=== PATIENT | female | born 1945 | race Caucasian/White ===

== ENCOUNTER 2017-09-10 15:52 | Inpatient (IN) | payer MEDICARE, OTHER ==
[~2017-09-10] VITALS: Ht 157.5 cm; Wt 69.0 kg
[2017-09-10 16:05] VITALS: BP 166/89
[2017-09-10] MEDS ORDERED: TYLENOL PO STA (16:06)
[2017-09-10] MEDS ORDERED: TORADOL IV STA (16:06)
[2017-09-10] MEDS ORDERED: NS 1000ML 1,000 ML IV STA (16:06)
[2017-09-10] MEDS ORDERED: ZOFRAN IV STA (16:06)
--- NOTE | 2017-09-10 16:06 | NUR ---
ARRIVAL PATIENT ARRIVED TO ED6 VIA W/C WITH FAMILY, C/O OF LEFT FLANK AND BACK PAIN SINCE 1500 TODAY, DID TAKE 2 ADVIL DRAWER WAXER, HERE FOR FURTHER EVAL.
--- NOTE | 2017-09-10 16:13 | ER.PDOC ---
General Chief Complaint: Abdomen Pain Stated Complaint: ABD PAIN Time seen by MD: 16:31 Source: patient Exam Limitations: no limitations History of Present Illness Initial Comments 71 yo F p/w severe L sided flank pain, onset this morning, worsened acutely at 3pm. Denies any trauma, recent travel, known exposure to bad foods or known sick contacts. + nausea with no associated vomiting. Patient denies any previous history of nephrolithiasis. Timing/Duration: 4-6 hours Severity/Quality: severe, sharpness, stabbing Radiation: LLQ, flank Associated Symptoms: nausea/vomiting Exacerbated by: nothing Relieved By: nothing Allergies: Coded Allergies: codeine (Verified Allergy, Unknown, 09/10/17) Home Meds Unable to Obtain Active Prescriptions or Reported Meds Vital Signs First Vital Signs Date Time Temp Pulse Resp B/P (MAP) Pulse Ox O2 Delivery O2 Flow Rate FiO2 09/10/17 16:02 97.9 71 18 09/10/17 16:03 92 Room Air 09/10/17 16:05 166/89 (114) Last Vital Signs Date Time Temp Pulse Resp B/P (MAP) Pulse Ox O2 Delivery O2 Flow Rate FiO2 09/10/17 16:05 97.6 71 20 166/89 (114) 92 Room Air Past Medical History Medical History: diabetes, hypertension, thyroid disease Surgical History: appendectomy, hysterectomy Social History Smoking: non-smoker Alcohol Use: none Drug Use: none Reviewed Nursing Reviewed: Vital Signs, Abn. Noted, Nursing Assessment Constitutional: no symptoms reported EENTM: no symptoms reported Respiratory: no symptoms reported Cardiovascular: no symptoms reported Gastrointestinal: see HPI Genitourinary: see HPI Musculoskeletal: no symptoms reported Skin: no symptoms reported Psychiatric/Neurological: no symptoms reported Endocrine: no symptoms reported Hematologic/Lymphatic: no symptoms reported All Other Systems: Reviewed and Negative Physical Exam General Appearance: WD/WN, Moderate Distress HEENT: PERRL/EOMI, Normal ENT Inspection Neck: Non-Tender, Full Range of Motion Respiratory: chest non-tender, lungs clear, normal breath sounds, no respiratory distress Cardiovascular: Normal Peripheral Pulses, Regular Rate, Rhythm, No Edema, No Gallop Gastrointestinal: Tenderness (L flank, L CVA, LLQ) Back: Normal Inspection, No Vertebral Tenderness, CVA Tenderness (L) Extremities: Normal Range of Motion, Non-Tender, Normal Inspection, No Pedal Edema Neurologic/Psychiatric: health therapist II-XII NML as Tested, Alert, Normal Mood/Affect, Oriented x 3 Results/Orders Results/Orders [facility] [place] [address] DIAGNOSTIC IMAGING REPORT STATUS: Signed PATIENT NAME: MCKENNA GOLDMAN MR#: [id number] : 1945 LOCATION: ER ROOM#: BED: SEX: F AGE: 71 SERVICE DATE: 09/10/17 155 ORDERING PHYSICIAN: MILTON VIDAL MD RAD#: [id number] ACCESSION NUMBER(s): [id number] PROCEDURE: CT ABD/PELVIS WO IV CONTRAST EXAM DATE: 09/10/17 1628 cc: C:\Program Files (x86)\[facility]; WINSTON FARIAS MD; MILTON VIDAL MD / CC: C:\Program Files (x86)\[facility]; WINSTON FARIAS MD; MILTON VIDAL MD PROCEDURE:CT ABDOMEN/PELVIS W/O CONTRAST COMPARISON:None. INDICATIONS:severe L sided flank pain TECHNIQUE:Axial images were created through the abdomen and pelvis without intravenous contrast material. No oral contrast was administered. Sagittal and coronal reconstructions were performed from source images. FINDINGS: LUNG BASES:Normal. No visible pulmonary or pleural disease. LIVER:Normal. No significant liver lesions are identified. BILIARY:Normal. No visible dilatation or calcification. PANCREAS:Normal. No lesion, fluid collection, ductal dilatation, or atrophy. SPLEEN:Normal. No enlargement or focal lesion. ADRENALS:Normal. No mass or enlargement. URINARY TRACT:No hydronephrosis. Multiple small left renal collecting system calculi, in the inferior calyx, largest fragment appears 4 mm in size. AORTA/VASCULAR:Normal. No aneurysm. RETROPERITONEUM:Normal. No mass or adenopathy. BOWEL/MESENTERY:There is mild colonic diverticulosis without evidence for diverticulitis. There is no intestinal obstruction, free fluid, free air or mesenteric inflammatory changes. ABDOMINAL WALL:Normal. No mass or hernia. PELVIC ORGANS:The uterus is surgically absent. No visible mass. BONES:There are degenerative changes of the spine. OTHER:Negative. CONCLUSION:Nonobstructing left renal collecting system calculi. Diverticulosis without CT evidence of acute diverticulitis Dictated by: Winston Farias MD on 09/10/2017 at 05:02 PM Laboratory Tests Test 09/10/17 00:00 09/10/17 16:12 Urine Collection Type UNKNOWN Urine Color YELLOW Urine Appearance CLOUDY Urine Bilirubin NEGATIVE MG/DL Urine Ketones NEGATIVE Urine Specific [place] 1.015 Urine pH 6 Urine Protein NEGATIVE Urine Urobilinogen NORMAL Urine Nitrate POSITIVE Urine Leukocyte Esterase 500/uL 2+ Urine Blood 50 2+ Urine RBC 2-5 RBC/HPF Urine WBC 10-25 WBC/HPF Urine Squamous Epithelial Cells FEW #/HPF Urine Bacteria MANY Urine Glucose NORMAL White Blood Count 6.7 10^3/uL Red Blood Count 4.25 10^6/uL Hemoglobin 13.3 g/dL Hematocrit 40.0 % Mean Corpuscular Volume 94.1 fL Mean Corpuscular Hemoglobin 31.3 pg Mean Corpuscular Hemoglobin Concent 33.3 g/dL Red Cell Distribution Width 13.7 % Platelet Count 260 10^3/uL Mean Platelet Volume 10.2 fL Neutrophils (%) (Auto) 61.5 % Lymphocytes (%) (Auto) 31.6 % Monocytes (%) (Auto) 5.2 % Neutrophils # (Auto) 4.1 10^3/uL Lymphocytes # (Auto) 2.1 10^3/uL Monocytes # (Auto) 0.4 10^3/uL Absolute Immature Granulocyte (auto 0.01 10^3 u/L Eosinophils % 1.2 % Basophils % 0.4 % Basophils # 0.0 10^3/uL Eosinophil Count 0.1 10^3/uL Prothrombin Time 9.8 SEC Prothrombin Time INR (Non-Therap) 1.0 Activated Partial Thromboplast Time 24.3 SEC Sodium Level 141 mmol/L Potassium Level 3.5 mmol/L Chloride Level 105.0 mmol/L Carbon Dioxide Level 23.3 mmol/L Anion Gap 16.2 Blood Urea Nitrogen 20 mg/dL Creatinine 1.04 mg/dL Estimated GFR () 63.6 BUN/Creatinine Ratio 19.0 Glucose Level 99 mg/dL Calcium Level 8.9 mg/dL Total Bilirubin 0.5 mg/dL Aspartate Amino Transf (AST/SGOT) 18 U/L Alanine Aminotransferase (ALT/SGPT) 23 U/L Alkaline Phosphatase 63 U/L Total Protein 7.4 g/dL Albumin 3.8 g/dL Globulin 3.6 Lipase 155 U/L Percent Immature Gran (Cell Imm) 0.10 % Current Medications Medications (Trade) Dose Ordered Sig/Mellissa Route PRN Reason Start Time Stop Time Status Last Admin Dose Admin Ketorolac Tromethamine (Toradol) 15 mg STAT STAT IV 09/10/17 16:06 09/10/17 16:10 DC 09/10/17 16:16 Sodium Chloride 1,000 ml @ 0 mls/hr Q0M STAT IV 09/10/17 16:06 09/10/17 16:10 DC 09/10/17 16:15 Ondansetron HCl (Zofran) 4 mg STAT STAT IV 09/10/17 16:06 09/10/17 16:10 DC 09/10/17 16:17 Acetaminophen (Tylenol) 1,000 mg STAT STAT PO 09/10/17 16:06 09/10/17 16:28 DC Sodium Chloride 1,000 ml @ ud STK-MED ONCE .ROUTE 09/10/17 16:20 09/10/17 16:22 DC Ondansetron HCl (Zofran) 4 mg STK-MED ONCE .ROUTE 09/10/17 16:20 09/10/17 16:22 DC Ketorolac Tromethamine (Toradol) 30 mg STK-MED ONCE .ROUTE 09/10/17 16:21 09/10/17 16:22 DC Meperidine HCl (Demerol) 50 mg STAT STAT IV 09/10/17 17:13 09/10/17 17:14 DC 09/10/17 17:32 Meperidine HCl (Demerol) 50 mg STK-MED ONCE .ROUTE 09/10/17 17:26 09/10/17 17:28 DC Ceftriaxone Sodium 1000 mg/ Sodium Chloride 100 ml @ 100 mls/hr STAT STAT IV 09/10/17 17:44 09/10/17 18:43 09/10/17 17:50 Sodium Chloride 100 ml @ ud STK-MED ONCE IV 09/10/17 17:48 09/10/17 17:50 DC Ceftriaxone Sodium (Rocephin) 1,000 mg STK-MED ONCE .ROUTE 09/10/17 17:48 09/10/17 17:50 DC Progress Progress Patient still with significant pain and nausea despite multiple doses of parenteral analgesia. Discussed patient with Dr. Palm for admission/ observation for pain control. Course Vitals & review Data Vital Sign - Last 24 Hours 09/10/17 09/10/17 09/10/17 16:02 16:03 16:05 Temp 97.9 97.6 97.6 Pulse 71 71 71 Resp 18 20 20 B/P (MAP) 166/89 (114) Pulse Ox 92 92 O2 Delivery Room Air Room Air Departure Time of Disposition: 18:33 Disposition: 09 ADMITTED INPATIENT Impression: Primary Impression: UTI (urinary tract infection) Additional Impressions: Left ureteral calculus Intractable abdominal pain Condition: Stable Referrals: PCP,UNKNOWN (PCP) PRIMARY CARE PROVIDER Scripts Unable to Obtain Active Prescriptions or Reported Meds Duration or Time Spent with Pa: 60 Problem Qualifiers MILTON VIDAL MD Sep 10, 2017 16:13
[2017-09-10] MEDS ORDERED: ZOFRAN ONE (16:20)
[2017-09-10] MEDS ORDERED: NS 1000ML 1,000 ML ONE (16:20)
[2017-09-10] MEDS ORDERED: TORADOL ONE (16:21)
[2017-09-10 16:23] LABS: BASOPHIL % 0.4 % (0.0-0.2); EOSINOPHIL # 0.1 10^3/uL (0.0-0.2); EOSINOPHIL % 1.2 % (0.0-5.0); HEMOGLOBIN 13.3 g/dL (12.0-15.0); LYMPHOCYTES # 2.1 10^3/uL (1.0-4.8); LYMPHOCYTES % 31.6 % (24.0-44.0); MEAN CELL HGB 31.3 pg (26-34); MEAN CELL HGB CONCENTRATION 33.3 g/dL (33-37); MEAN CORP VOLUME 94.1 fL (78-100); MEAN PLATELET VOLUME 10.2 fL (7.8-11.0); MONOCYTES # 0.4 10^3/uL (0.3-0.8); MONOCYTES % 5.2 % (5.0-12.0); NEUTROPHIL # 4.1 10^3/uL (1.8-7.7); NEUTROPHILS % 61.5 % (41.0-85.0); RED CELL DISTRIBUTION WIDTH 13.7 % (11.5-14.5); WHITE BLOOD CELL 6.7 10^3/uL (4.5-11.0)
[2017-09-10 16:39] LABS: CALCIUM 8.9 mg/dL (8.4-10.5); CARBON DIOXIDE 23.3 mmol/L (20.0-32)
--- NOTE | 2017-09-10 16:42 | NUR ---
CAT SCAN PATIENT TO CAT SCAN WITH DILCIA FROM RADIOLOGY.
--- NOTE | 2017-09-10 16:49 | NUR ---
CT: RAD RETURNED PATIENT TO EXAM TOOM #6.
--- NOTE | 2017-09-10 17:09 | DIREP ---
PROCEDURE:CT ABDOMEN/PELVIS W/O CONTRAST COMPARISON:None. INDICATIONS:severe L sided flank pain TECHNIQUE:Axial images were created through the abdomen and pelvis without intravenous contrast material. No oral contrast was administered. Sagittal and coronal reconstructions were performed from source images. FINDINGS: LUNG BASES:Normal. No visible pulmonary or pleural disease. LIVER:Normal. No significant liver lesions are identified. BILIARY:Normal. No visible dilatation or calcification. PANCREAS:Normal. No lesion, fluid collection, ductal dilatation, or atrophy. SPLEEN:Normal. No enlargement or focal lesion. ADRENALS:Normal. No mass or enlargement. URINARY TRACT:No hydronephrosis. Multiple small left renal collecting system calculi, in the inferior calyx, largest fragment appears 4 mm in size. AORTA/VASCULAR:Normal. No aneurysm. RETROPERITONEUM:Normal. No mass or adenopathy. BOWEL/MESENTERY:There is mild colonic diverticulosis without evidence for diverticulitis. There is no intestinal obstruction, free fluid, free air or mesenteric inflammatory changes. ABDOMINAL WALL:Normal. No mass or hernia. PELVIC ORGANS:The uterus is surgically absent. No visible mass. BONES:There are degenerative changes of the spine. OTHER:Negative. CONCLUSION:Nonobstructing left renal collecting system calculi. Diverticulosis without CT evidence of acute diverticulitis Dictated by: Josemanuel Farias MD on 09/10/2017 at 05:02 PM
[2017-09-10] MEDS ORDERED: DEMEROL IV STA (17:13)
[2017-09-10] MEDS ORDERED: DEMEROL ONE (17:26)
[2017-09-10 17:42] LABS: APPEARANCE,URINE CLOUDY (CLEAR); BILIRUBIN,URINE NEGATIVE (NEGATIVE); UA COLOR YELLOW (YELLOW); UROBILINOGEN,URINE NORMAL (NEGATIVE)
[2017-09-10] MEDS ORDERED: ROCEPHIN 1,000 MG in NS 100ML 100 ML IV STA (17:44)
[2017-09-10] MEDS ORDERED: ROCEPHIN ONE (17:48)
[2017-09-10] MEDS ORDERED: NS 100ML 100 ML IV ONE (17:48)
[2017-09-10 18:05] VITALS: BP 97/51
--- NOTE | 2017-09-10 18:31 | NUR ---
FERNANDEZ ROTHMAN ON PHONE
[2017-09-10] MEDS ORDERED: FLOMAX PO STA (18:35)
[2017-09-10] MEDS ORDERED: FLOMAX ONE (18:39)
--- NOTE | 2017-09-10 19:35 | NUR ---
NAUSEA PT WITH DRY HEAVES AFTER ROLLING ONTO BACK. NOTIFIED DR. ROTHMAN, ORDER RECEIVED FOR REGLAN IV.
[2017-09-10] MEDS ORDERED: REGLAN IV STA (19:38)
--- NOTE | 2017-09-10 19:48 | NUR ---
ADMIT PT TO [facility] [address] VIA ; ACCOMPANIED BY FAMILY, PERSONAL BELONGINGS, AND THIS NURSE. NONSKID SOCKS APPLIED. OXYGEN ON AT 2L/NC. HOME MEDICATIONS REVIEWED WITH PT AND SPOUSE, PT ONLY TAKES LEVOTHYROXINE 75 MCG ONCE DAILY. PT CONTINUES WITH NAUSEA, NOTED SMALL EMESIS WHILE IN ELEVATOR. UPON ARRIVAL TO ROOM, POSITIONED TO COMFORT IN BED, SIDERAILS UP, CALL LIGHT IN REACH. PT REQUESTS ADDITIONAL BLANKETS; REMAINS NAUSEATED. REPORT TO JUAN RAMON LOGAN AND SAVANNA KENT. RELINQUISH CARE.
[2017-09-10 19:50] VITALS: BP 133/73
[2017-09-10] MEDS ORDERED: LEVO75TA6 PO (20:11)
[2017-09-10] MEDS ORDERED: NS 1000ML 1,000 ML IV ONE (20:30)
[2017-09-10] MEDS ORDERED: D5W 1000ML 1,000 ML PRN (20:30)
[2017-09-10] MEDS ORDERED: PHENERGAN IV PRN (20:30)
--- NOTE | 2017-09-10 20:48 | NUR ---
PHENERGAN 6.25MG IV GIVEN IN 50ML BAG OF NS FOR NAUSEA
[2017-09-10] MEDS: NS 1000ML 1,000 ML IV SCH (21:30)
[2017-09-10] MEDS ORDERED: DURAMORPH IV PRN (21:30)
[2017-09-10] MEDS ORDERED: ZOFRAN IV PRN (21:30)
--- NOTE | 2017-09-10 22:01 | NUR ---
DURAMORPH 2MG IV GIVEN FOR PAIN
--- NOTE | 2017-09-10 22:19 | HPH ---
ADMIT DATE: 09/10/2017 CHIEF COMPLAINT: Abdominal pain. HISTORY OF PRESENT ILLNESS: The patient is a 71-year-old woman with a past medical history significant for hypothyroidism, who was in the ER with complaints of left flank pain. The pain has been present for 6 hours. It was sharp in nature, no radiation. It was associated with some nausea. There is no vomiting. No acute events. Workup in ER did show left renal calculi of approximately 4 mm with no hydronephrosis. PAST MEDICAL HISTORY: Includes hypertension, hypothyroidism, diabetes mellitus type 2. PAST SURGICAL HISTORY: She has had appendectomy, hysterectomy. ALLERGIES: ALLERGIC TO CODEINE, which causes lightheadedness and reportedly syncope. HOME MEDICATIONS: List only includes levothyroxine 50 mcg daily. SOCIAL HISTORY: She lives at home. No alcohol, tobacco or illicit drug use history. FAMILY HISTORY: Negative for early coronary artery disease or diabetes. REVIEW OF SYSTEMS: CARDIAC: Denies chest pain, shortness of breath or dyspnea on exertion. PULMONARY: No cough, sputum production or pleuritic chest pain. GASTROINTESTINAL: Positive for nausea, no vomiting, diarrhea or constipation. All else negative in 10 point review of system except as in HPI. PHYSICAL EXAMINATION: VITAL SIGNS: Upon arrival to the ER, height 157.5 cm, weight 68.5 kilograms, temperature 97.6, pulse 71, respiratory rate is 20, blood pressure 166/89, O2 saturation 92% on room air. GENERAL: She is alert, in no acute distress at the time of exam. HEENT: Pupils equal, round, reactive to light. Sclerae are anicteric. Oropharynx is clear. Mucous membranes are moist. NECK: Supple, no lymphadenopathy. CARDIOVASCULAR: At time of exam was regular rate and rhythm. LUNGS: Clear bilaterally. No wheezing. ABDOMEN: Soft. Bowel sounds are present. She is tender to palpation left flank with no rebound or guarding. EXTREMITIES: No cyanosis, clubbing or significant edema. NEUROLOGIC: Grossly nonfocal. LABORATORY DATA: CBC: White count 6.7, hemoglobin 13.3, platelets 260. Sodium was 141, potassium 3.5, chloride 105, CO2 is 23, BUN 20, creatinine 1.04, glucose is 99, calcium is 8.9, total bilirubin 0.5, AST 18, ALT is 23, alkaline phosphatase 63, total protein 7.4, albumin 3.8, lipase 155. UA, pH is 6.0, specific gravity is 1.015, positive nitrite and leukocyte esterase, 10-25 wbc's, few squamous epithelial cells, many bacteria. IMAGING STUDIES: Abdominal pelvis CT does show left renal calculi. This is nonobstructing, no other acute process. ASSESSMENT AND PLAN: The patient is a 71-year-old woman here with left nephrolithiasis with urinary tract infection, hypothyroidism, diabetes mellitus type 2 and hypertension. 1. We will continue levothyroxine, her home medication. 2. IV fluid hydration. 3. Appropriate p.r.n. pain and nausea medication. 4. IV antibiotics with IV ceftriaxone. Followup urine culture and susceptibilities. 5. Deep venous thrombosis prophylaxis with Lovenox. Time spent with the patient on 09/10/2017, is 45 minutes. This plan was discussed with the patient and her family, she is her own decision maker. She does understand and concur with plans. Michael Palm MD DR: WATSON/kristen JOB# [id number]
[2017-09-10] MEDS: TYLENOL PO PRN (22:46)
--- NOTE | 2017-09-10 22:46 | NUR ---
TYLENOL 1000MG PO GIVEN FOR TEMP 100.1
[2017-09-11] VITALS (7 sets, daily range): BP systolic 90–110; BP diastolic 51–56
[2017-09-11] MEDS: NS 1000ML 1,000 ML IV SCH ×2 (05:21→17:18)
[2017-09-11 06:14] LABS: BASOPHIL % 0.1 % (0.0-0.2); HEMOGLOBIN 11.5 g/dL (12.0-15.0); LYMPHOCYTES # 0.3 10^3/uL (1.0-4.8); LYMPHOCYTES % 1.9 % (24.0-44.0); MEAN CELL HGB 31.4 pg (26-34); MEAN CELL HGB CONCENTRATION 32.9 g/dL (33-37); MEAN CORP VOLUME 95.6 fL (78-100); MEAN PLATELET VOLUME 10.5 fL (7.8-11.0); MONOCYTES % 6.2 % (5.0-12.0); NEUTROPHIL # 14.8 10^3/uL (1.8-7.7); NEUTROPHILS % 91.1 % (41.0-85.0); WHITE BLOOD CELL 16.2 10^3/uL (4.5-11.0)
[2017-09-11 06:35] LABS: CALCIUM 7.7 mg/dL (8.4-10.5); CARBON DIOXIDE 22.7 mmol/L (20.0-32)
--- NOTE | 2017-09-11 06:42 | NUR ---
report to Efren CORRALES
--- NOTE | 2017-09-11 07:18 | NUR ---
REPORT REPORT RECEIVED FROM COMPLIANCE OFFICER
[2017-09-11] MEDS ORDERED: NS 100ML 100 ML IV ONE (07:48)
[2017-09-11] MEDS ORDERED: ROCEPHIN ONE (07:48)
[2017-09-11] MEDS ORDERED: PROTONIX PO ONE (07:48)
[2017-09-11] MEDS: SYNTHROID PO SCH (07:59)
[2017-09-11] MEDS: PROTONIX PO SCH (08:00)
[2017-09-11] MEDS: ROCEPHIN 1,000 MG in NS 100ML 100 ML IV SCH (08:00)
[2017-09-11] MEDS: LOVENOX SQ SCH (10:15)
[2017-09-11 11:21] LABS: BAND NEUTROPHILS 2 % (2-6); MYELOCYTES 1 %; SEGMENTED NEUTROPHILS 22 % (31-76)
[2017-09-11 11:22] LABS: TOXIC GRANULATION 1+ (NEGATIVE)
--- NOTE | 2017-09-11 13:00 | NUR ---
REPORT REPORT RECEIVED FROM Sandra GARDINER RN. PATIENT CARE ASSUMED.
--- NOTE | 2017-09-11 13:43 | PRM.PN ---
Subjective Subjective Date: Sep 11, 2017 Time: 13:30 Subjective Pt reports pain is better; slight discomfort only; no N/V Patient History: Patient reports no known family medical history. VTE VTE Risk Total Score: 2 VTE Risk Score VTE Risk: Score 0-1 = Low Risk (Aggressive mobilization; early ambulation; no VTE prophylaxis required) Score 2: Moderate Risk (Intermittent/Pneumatic Compression Device OR Lovenox/Heparin/Coumadin) Score 3-4: High Risk (Intermittent/Pneumatic Compression Device AND Lovenox/Heparin/Coumadin) Score > or =5: Highest Risk (Intermittent/Pneumatic Compression Device AND Lovenox/Heparin/Coumadin) Antico:Hep/LMWH/Coum/Xarelto: Yes Mechanical device ordered: No Review of Systems Constitutional: No: Fever, Malaise Eyes: No: Pain, Vision change, Conjunctivae inflammation ENT: No: Ear pain, Ear discharge, Nose pain Respiratory: No: Cough, Dry, Shortness of breath, SOB with excertion Cardiovascular: No: Chest Pain, Palpitations, Orthopnea Gastrointestinal: No: Nausea, Vomiting, Abdominal Pain Genitourinary: No Incontinence, No Hematuria, No Retention Musculoskeletal: No: neck pain, shoulder pain, arm pain, back pain Skin: No: Lesions, Jaundice, Bruising Neurological: No: Numbness, Incoordination, Confusion, Seizures Allergies: Coded Allergies: codeine (Verified Allergy, Unknown, 09/10/17) Scheduled Levothyroxine Sodium (Levothyroxine Sodium), 1 TAB PO DAILY, (Reported) Objective Vitals and I/O Vital Sign - Last 24 Hours 09/10/17 09/10/17 09/10/17 09/10/17 16:02 16:03 16:05 18:05 Temp 97.9 97.6 97.6 97.6 Pulse 71 71 71 75 Resp 18 20 20 20 B/P (MAP) 166/89 (114) 97/51 (66) Pulse Ox 92 92 98 O2 Delivery Room Air Room Air Nasal [place] O2 Flow Rate 2.00 09/10/17 09/10/17 09/10/17 09/10/17 19:50 20:05 21:53 22:45 Temp 98.2 100.1 Pulse 89 Resp 18 B/P (MAP) 133/73 (93) Pulse Ox 96 O2 Delivery Nasal Canula Nasal Cannula Nasal Cannula O2 Flow Rate 2.00 2.00 2.00 09/11/17 09/11/17 09/11/17 09/11/17 00:05 04:37 07:43 09:52 Temp 98.1 98.3 97.5 Pulse 91 87 81 Resp 18 18 20 B/P (MAP) 98/55 (69) 92/54 (67) 90/53 (65) Pulse Ox 95 96 90 O2 Delivery Room Air Room Air Room Air Room Air 09/11/17 12:10 Temp 98.9 Pulse 83 Resp 20 B/P (MAP) 90/54 (66) Pulse Ox 93 O2 Delivery Room Air Intake and Output 09/10/17 09/10/17 09/11/17 15:00 23:00 07:00 Intake Total 1108.25 ml 1218 ml Output Total 750 ml Balance 1108.25 ml 468 ml General: Alert, Oriented X3, Cooperative, No acute distress HEENT: Atraumatic, PERRLA, EOMI, Mucous membr. moist/pink Neck: Supple, No JVD, No thyromegaly Lungs: Clear to auscultation, Normal air movement Heart: Regular rate, Normal S1, Normal S2 Abdomen: Normal bowel sounds, Soft Extremities: No clubbing, No cyanosis Skin: No rashes, No breakdown Neuro: Normal speech Psych/Mental Status: Mental status NL, Mood NL Course Sepsis Screening Results: Posi: NEGATIVE Sepsis Qualifier/Stage: NO DEFINITE RISK Vitals & review Data Vital Sign - Last 24 Hours 09/10/17 09/10/17 09/10/17 16:02 16:03 16:05 Temp 97.9 97.6 97.6 Pulse 71 71 71 Resp 18 20 20 B/P (MAP) 166/89 (114) Pulse Ox 92 92 O2 Delivery Room Air Room Air Assessment/Plan Assessment/Plan Assessment/Plan 71 yo female with UTI, L renal stones, DM, HTN - cont IV abx and IVF - await urine cx - increase activity LAURA CHERRY MD Sep 11, 2017 13:43
--- NOTE | 2017-09-11 13:53 | NUR ---
STATUS PATIENT RESTING IN BED WITH SPOUSE AT BEDSIDE. PATIENT DENIES PAIN OR DISCOMFORT AT THIS TIME. BED IN LOW LOCKED POSITION WITH SIDE RAILS UP X 2. CALL LIGHT AND BED SIDE TABLE WITHIN REACH.
[2017-09-11] MEDS: TYLENOL PO PRN (17:20)
--- NOTE | 2017-09-11 19:22 | NUR ---
REPORT REPORT GIVEN TO MASON HELPER.
[2017-09-12 04:15] VITALS: BP 123/69
[2017-09-12] MEDS: TYLENOL PO PRN ×2 (04:32→13:07)
[2017-09-12 06:34] LABS: BASOPHIL % 0.1 % (0.0-0.2); EOSINOPHIL # 0.1 10^3/uL (0.0-0.2); EOSINOPHIL % 0.5 % (0.0-5.0); HEMOGLOBIN 10.9 g/dL (12.0-15.0); LYMPHOCYTES # 0.9 10^3/uL (1.0-4.8); LYMPHOCYTES % 5.5 % (24.0-44.0); MEAN CELL HGB 31.6 pg (26-34); MEAN CELL HGB CONCENTRATION 32.8 g/dL (33-37); MEAN CORP VOLUME 96.2 fL (78-100); MEAN PLATELET VOLUME 10.7 fL (7.8-11.0); MONOCYTES # 0.9 10^3/uL (0.3-0.8); MONOCYTES % 5.5 % (5.0-12.0); NEUTROPHIL # 14.3 10^3/uL (1.8-7.7); NEUTROPHILS % 87.8 % (41.0-85.0); RED CELL DISTRIBUTION WIDTH 14.4 % (11.5-14.5); WHITE BLOOD CELL 16.3 10^3/uL (4.5-11.0)
--- NOTE | 2017-09-12 06:40 | NUR ---
REPORT REPORT RECEIVED FROM MICHAEL CORRALES ASSUMED CARE OF PT
[2017-09-12 06:43] LABS: CALCIUM 7.9 mg/dL (8.4-10.5); CARBON DIOXIDE 24.5 mmol/L (20.0-32)
[2017-09-12 07:35] VITALS: BP 106/63
[2017-09-12 08:38] LABS: BILIRUBIN,URINE NEGATIVE (NEGATIVE); UROBILINOGEN,URINE NORMAL (NEGATIVE)
[2017-09-12] MEDS: PROTONIX PO SCH (08:43)
[2017-09-12] MEDS: SYNTHROID PO SCH (08:43)
[2017-09-12] MEDS: LOVENOX SQ SCH (08:44)
[2017-09-12] MEDS: NS 1000ML 1,000 ML IV SCH ×3 (08:44→23:30)
[2017-09-12] MEDS: ROCEPHIN 1,000 MG in NS 100ML 100 ML IV SCH (08:44)
[2017-09-12] MEDS: ULTRAM PO PRN (08:52)
[2017-09-12 09:38] LABS: APPEARANCE,URINE SLIGHTLY CLOUDY (CLEAR); UA COLOR DARK YELLOW (YELLOW)
[2017-09-12 11:45] VITALS: BP 125/72
[2017-09-12] MEDS: ZOFRAN IV PRN ×2 (13:07→19:09)
[2017-09-12 16:30] VITALS: BP 126/75
--- NOTE | 2017-09-12 18:31 | NUR ---
report received report from offgoing shift
[2017-09-12 19:23] VITALS: BP 155/79
[2017-09-12] MEDS ORDERED: GENTAMICIN SULFATE IV ONE (20:30)
[2017-09-12] MEDS ORDERED: PHENERGAN IV PRN (20:30)
[2017-09-12] MEDS ORDERED: NS 100ML 100 ML IV ONE (21:35)
[2017-09-13 00:02] VITALS: BP 166/84
[2017-09-13] MEDS ORDERED: NS 100ML 100 ML IV ONE (04:11)
[2017-09-13] MEDS: GENTAMICIN SULFATE IV SCH ×4 (04:15→21:21)
[2017-09-13 04:28] VITALS: BP 170/82
--- NOTE | 2017-09-13 06:54 | NUR ---
report report given to o/c shift
[2017-09-13 09:00] VITALS: BP 192/74
[2017-09-13] MEDS ORDERED: PHENERGAN 12.5 MG in HNS 50ML 50 ML IV PRN (09:00)
[2017-09-13] MEDS: ROCEPHIN 1,000 MG in NS 100ML 100 ML IV SCH (09:12)
[2017-09-13] MEDS: NS 1000ML 1,000 ML IV SCH (09:12)
[2017-09-13] MEDS: PROTONIX PO SCH (09:13)
[2017-09-13] MEDS: SYNTHROID PO SCH (09:13)
[2017-09-13] MEDS: LOVENOX SQ SCH (09:13)
--- NOTE | 2017-09-13 10:20 | NUR ---
DISCHARGE PLAN CM VISITED WITH PATIENT CONCERNING HER DISCHARGE PLAN AND NEED. PATIENT LIVES @ HOME WITH HER AND SHE IS VERY INDEPENDENT ON ADLS. 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 PATIENT DENIES NEEDING ADDITIONAL RESOURCES @ THIS TIME. CURRENT GOAL FOR PATIENT IS TO DISCHARGE BACK HOME WITH TO ROUTINE SELF CARE UPON DISCHARGE. NO FURTHER CM OR DISCHARGE NEEDS KNOWN @ THIS TIME.
[2017-09-13] MEDS: ULTRAM PO PRN (12:49)
[2017-09-13] MEDS: TYLENOL PO PRN ×2 (12:52→23:05)
--- NOTE | 2017-09-13 14:00 | NUR ---
REPORT RECEIVED RECEIVED REPORT FROM NURSE SHIRA DELATORRE ON Pt.
[2017-09-13] MEDS: NS IV SCH ×2 (14:16→21:21)
[2017-09-13] MEDS ORDERED: LOSA25TA5 PO (14:54)
[2017-09-13 15:59] VITALS: BP 125/83
[2017-09-13] MEDS: COZAAR PO SCH (15:59)
--- NOTE | 2017-09-13 15:59 | NUR ---
BP 183/77, CHARGE NURSE ELVIN AWARE, PER ORDER OF CHARGE NURSE ELVIN RN ADMINISTERED 25 LOSARTAN TAB TO Pt, Pt ASYMPTOMATIC DENIES ANY PAIN AND DISCOMFORT AT THIS TIME.
[2017-09-13 20:27] VITALS: BP 158/79
[2017-09-14] MEDS: NS 1000ML 1,000 ML IV SCH ×2 (00:27→05:30)
[2017-09-14 00:29] VITALS: BP 147/69
--- NOTE | 2017-09-14 02:49 | PNH ---
DATE: 09/13/2017 SUBJECTIVE: She states she feels better. She denies any nausea or vomiting. Couple of days ago, she was having some numbness, tingling of her hands and significant nausea. She thinks it is reaction to some medications, she is not sure which one. She is tolerating diet well. OBJECTIVE: VITAL SIGNS: T-max in last 24 hours is 98.3, pulse 54, respiratory rate 18, blood pressure is 170/82, O2 saturation 98% on room air. GENERAL: She is alert, in no acute distress at time of exam. HEENT: Pupils equal, round and reactive to light. Sclerae are anicteric. Oropharynx is clear. Mucous membranes are moist. NECK: Supple, no lymphadenopathy. CARDIOVASCULAR: At time of exam is regular rate and rhythm. LUNGS: Clear bilaterally. No wheezing. ABDOMEN: Soft. Bowel sounds are present, nontender to palpation. EXTREMITIES: No cyanosis, clubbing or significant edema. NEUROLOGIC: Grossly nonfocal. ASSESSMENT AND PLAN: The patient is a 71-year-old woman here with slowly improving pyelonephritis with anemia due to chronic disease. 1. Continue intravenous fluids. 2. Continue intravenous antibiotics. Gentamicin has been added. Followup urine culture and susceptibilities. There is indication this may be a resistant bacteria. 3. Deep venous thrombosis prophylaxis with Lovenox. 4. Appropriate p.r.n. pain and nausea medication. Time spent on 09/13/2017 is 25 minutes. Michael Palm MD DR: WATSON/kristen JOB# [id number]
[2017-09-14 04:47] LABS: BASOPHIL % 0.3 % (0.0-0.2); EOSINOPHIL # 0.1 10^3/uL (0.0-0.2); HEMOGLOBIN 11.2 g/dL (12.0-15.0); LYMPHOCYTES # 1.8 10^3/uL (1.0-4.8); LYMPHOCYTES % 14.7 % (24.0-44.0); MEAN CELL HGB 31.2 pg (26-34); MEAN CELL HGB CONCENTRATION 33.1 g/dL (33-37); MEAN CORP VOLUME 94.2 fL (78-100); MEAN PLATELET VOLUME 11.7 fL (7.8-11.0); MONOCYTES # 0.8 10^3/uL (0.3-0.8); MONOCYTES % 6.7 % (5.0-12.0); NEUTROPHIL # 9.4 10^3/uL (1.8-7.7); NEUTROPHILS % 76.3 % (41.0-85.0); RED CELL DISTRIBUTION WIDTH 13.7 % (11.5-14.5); WHITE BLOOD CELL 12.3 10^3/uL (4.5-11.0)
[2017-09-14 04:52] VITALS: BP 159/65
[2017-09-14 04:57] LABS: CALCIUM 7.9 mg/dL (8.4-10.5); CARBON DIOXIDE 22.1 mmol/L (20.0-32)
[2017-09-14] MEDS: GENTAMICIN SULFATE IV SCH (05:47)
[2017-09-14] MEDS: NS IV SCH (05:47)
--- NOTE | 2017-09-14 06:45 | NUR ---
REPORT RECEIVED FROM JUAN RAMON TURCIOS.
--- NOTE | 2017-09-14 07:37 | NUR ---
ASSESSMENT COMPLETED. PATIENT SITTING UP ON SIDE OF BED. DENIES PAIN OR DISCOMFORT. AT BEDSIDE. PATIENT STATES "I AM HOPING I GET TO GO HOME TODAY. I HAVE THINGS I NEED TO DO." NO DISTRESS NOTED. IV PATENT WITHOUT S/S INFILTRATION. DENIES CHILLS, FEVER OR PAIN. PATIENT AMBULATORY IN ROOM WITHOUT PROBLEMS. CALL LIGHT WITHIN REACH.
[2017-09-14] MEDS: ROCEPHIN 1,000 MG in NS 100ML 100 ML IV SCH (08:18)
[2017-09-14] MEDS ORDERED: AMOX1TAB63 PO (08:42)
--- NOTE | 2017-09-14 08:47 | PRM.DC ---
Discharge Summary Date of Discharge: Sep 14, 2017 Reason for Visit: Abdominal pain Patient History: Patient reports no known family medical history. History Present Illness: (1) Left ureteral calculus Status: Resolved ICD Code: N20.1 - Calculus of ureter SNOMED: 98663033 (2) UTI (urinary tract infection) Status: Acute ICD Code: N39.0 - Urinary tract infection, site not specified SNOMED: 17196362 Assessment & Plan: Five more days of oral antibiotics Multi-drug resistant UTI General: Alert, Oriented X3, Cooperative, No acute distress HEENT: PERRLA, EOMI Neck: Supple, No JVD Lungs: Clear to auscultation, Normal air movement Heart: Regular rate, Normal S1, Normal S2 Abdomen: Normal bowel sounds, Soft, No tenderness Extremities: No clubbing, No cyanosis, No edema Skin: No breakdown Neuro: Normal speech, Strength at 5/5 X4 ext, Cranial nerves 3-12 NL Psych/Mental Status: Mood NL Results(Labs/Rad) Laboratory Tests Test 09/14/17 04:23 White Blood Count 12.3 10^3/uL Red Blood Count 3.59 10^6/uL Hemoglobin 11.2 g/dL Hematocrit 33.8 % Mean Corpuscular Volume 94.2 fL Mean Corpuscular Hemoglobin 31.2 pg Mean Corpuscular Hemoglobin Concent 33.1 g/dL Red Cell Distribution Width 13.7 % Platelet Count 184 10^3/uL Mean Platelet Volume 11.7 fL Neutrophils (%) (Auto) 76.3 % Lymphocytes (%) (Auto) 14.7 % Monocytes (%) (Auto) 6.7 % Neutrophils # (Auto) 9.4 10^3/uL Lymphocytes # (Auto) 1.8 10^3/uL Monocytes # (Auto) 0.8 10^3/uL Absolute Immature Granulocyte (auto 0.12 10^3 u/L Eosinophils % 1.0 % Basophils % 0.3 % Basophils # 0.0 10^3/uL Eosinophil Count 0.1 10^3/uL Sodium Level 143 mmol/L Potassium Level 3.7 mmol/L Chloride Level 109.0 mmol/L Carbon Dioxide Level 22.1 mmol/L Glucose Level 113 mg/dL Blood Urea Nitrogen 15 mg/dL Creatinine 1.03 mg/dL Calcium Level 7.9 mg/dL Anion Gap 15.6 Estimated GFR () 64.3 BUN/Creatinine Ratio 14.0 Magnesium Level 1.7 mg/dL Percent Immature Gran (Cell Imm) 1.00 % Scheduled Amoxicillin/Potassium Clav (Augmentin 875-125 Tablet), 1 EACH PO BID Levothyroxine Sodium (Levothyroxine Sodium), 1 TAB PO DAILY, (Reported) Losartan Potassium (Losartan Potassium), 1 TAB PO DAILY, (Reported) Sepsis Evaluation @ Discharge Vital Sign - Last 24 Hours 09/10/17 09/10/17 09/10/17 16:02 16:03 16:05 Temp 97.9 97.6 97.6 Pulse 71 71 71 Resp 18 20 20 B/P (MAP) 166/89 (114) Pulse Ox 92 92 O2 Delivery Room Air Room Air Course Sepsis Screening Results: Posi: NEGATIVE Sepsis Qualifier/Stage: NO DEFINITE RISK Vitals & review Data Vital Sign - Last 24 Hours 09/10/17 09/10/17 09/10/17 16:02 16:03 16:05 Temp 97.9 97.6 97.6 Pulse 71 71 71 Resp 18 20 20 B/P (MAP) 166/89 (114) Pulse Ox 92 92 O2 Delivery Room Air Room Air Plan Discharge Date: Sep 14, 2017 Dicharge DX: 1. Ureterolithiasis, 2. Multi-drug resistant UTI Discharge Disposition: Stable Plan Resume home medications plus Augmentin twice daily for five days Diet and activity as tolerated Follow up with PCP 1-2 weeks Drink plenty of water Discharge plans discussed with patient, she is her own decision maker and does understand and concur with plans Time spent 25 minutes Problem Qualifiers (1) UTI (urinary tract infection): Urinary tract infection type: acute cystitis Hematuria presence: without hematuria Qualified Codes: N30.00 - Acute cystitis without hematuria JOSE ROBERTO PRESLEY MD Sep 14, 2017 08:47
[2017-09-14] MEDS: LOVENOX SQ SCH (09:00)
[2017-09-14 09:18] VITALS: BP 203/84
[2017-09-14] MEDS: PROTONIX PO SCH (09:20)
[2017-09-14] MEDS: SYNTHROID PO SCH (09:21)
[2017-09-14] MEDS: COZAAR PO SCH (09:21)
== END 2017-09-14 10:25 | disposition home or self-care (01) | DRG 694 ==
LOC: ER 15:52 → MS 18:34 → OBSVTOIN 21:17
PROVIDERS: ADMIT Internal Medicine; ATTEND Internal Medicine
DX: N20.2 Calculus of kidney with calculus of ureter (principal); N12 Tubulo-interstitial nephritis, not specified as acute or chronic; I10 Essential (primary) hypertension; E03.9 Hypothyroidism, unspecified; E11.9 Type 2 diabetes mellitus without complications; D63.8 Anemia in other chronic diseases classified elsewhere; Z16.24 Resistance to multiple antibiotics; Z90.49 Acquired absence of other specified parts of digestive tract; Z90.710 Acquired absence of both cervix and uterus; Z79.899 Other long term (current) drug therapy; Z88.6 Allergy status to analgesic agent
CPT/HCPCS: 36415; 74176; 80048; 80053; 81000; 83690; 83735; 85025; 85610; 85730; 87077; 87086; 87186; 99285; G0378; J0696; J1580; J1650; J1885; J2175; J2405; J2550; J7030; J7050; J2274